=== PATIENT | female | born 1995 | race Caucasian/White ===

== ENCOUNTER 2017-11-18 22:19 | Emergency (ER) | payer MEDICAID, SELFPAY ==
[2017-11-18 22:20] VITALS: BP 127/70; PULSE 82; RESP 16; TEMP 36; O2SAT 97; BMI 43.2
--- NOTE | 2017-11-18 23:25 | ED.DCSUM_ITS ---
- ER Visit Summary Date of Service: 11/18/17 Chief Complaint: Abdominal pain History of Present Illness: The patient is a 21 F mid abdominal gnawing pain for the past few days, however pain to right lower quadrant since this afternoon. Pain sharp in nature. Nausea without vomiting. Normal bowel movement 7:30 PM. No urinary symptoms. Last menstrual period 8 days ago. History of cholecystectomy 10 years ago. Denies fever, chills, sweats. Took ibuprofen with no relief. History of PCOS however no pelvic pain in the past. Physical Examination: General: Alert and oriented ?3, no acute distress HEENT: Normocephalic, atraumatic. Moist mucosa membranes Neck: supple, nontender. Cardiovascular: Regular rate and rhythm, no murmurs Respiratory: Normal breath sounds, symmetric, no distress Abdomen: Soft, mild tenderness right lower quadrant and suprapubic, nondistended , no guarding or rebound, negative Rovsing's. Extremities: Nontender, no edema, pulses intact ?4 Neuro: no focal neurological deficits. Test Results: WBC 11.2. Hemoglobin 14. Creatinine 1.04. Potassium 3.9. Lipase 84. Liver enzymes normal. HCG negative. UA negative. Contrast CT abdomen pelvis shows no acute process, no pericecal inflammation. Emergency Department Course and Treatment: Patient fluids Zofran. Declined any pain medications. Normal labs, urine hCG negative. CT scan abdomen pelvis negative, no inflammation around the appendix. Reevaluation nausea improved. Pain improved. Nontender. Monitor symptoms sinus symptoms discussed return. Prescription for Zofran as needed. Follow-up as an outpatient. Treatment Plan: [] Disposition: Discharge Impression: 1. Right lower quadrant abdominal pain 2. Nausea This note was generated with .[employer] dictation software. It may contain incorrect words, spelling, and punctuation that were not noted in review of the chart prior to signing ED Disposition - Plan for ED Patient: Disposition: Home or Assisted Living Chief Complaint: Abd Pain Diagnosis: Right lower quadrant abdominal pain, Nausea Instructions: ED Abdominal Pain Unkn Cause Prescriptions: Ondansetron [Zofran Odt] 4 mg PO Q8H PRN PRN #10 tablet PRN Reason: Nausea Referrals: Chivo Lozano MD [Primary Care Provider] - 2 Days
[2017-11-18 23:45] LABS: Bacteria 0 SEEN /hpf (None Seen); Mucous, Urine 0 SEEN /hpf (<or=2+); Red Blood Cells-Urine 0 SEEN /hpf (0-5); White Blood Cells 0 SEEN /hpf (0-5)
[2017-11-18] MEDS: Ondansetron 4 MG/2 ML Vial IV (23:47)
[2017-11-18] MEDS: 0.9% Normal Saline 1,000 ML 125 ML IV (23:47)
[2017-11-18 23:49] LABS: Color, Urine Straw (Yellow); Glucose, Dipstick Normal (Normal); Ketone-Dipstick Negative (Negative); Leukocyte Esterase-Dipstick Negative /ul (Negative); Nitrite-Dipstick Negative (Negative); Occult Blood-Urine Negative /ul (Negative); Protein-Dipstick Negative (Negative); Urine Bilirubin Dipstick Negative (Negative); Urine Clarity Clear (Clear); Urine Urobilinogen Normal (Normal); Urine pH 6.5 (5.0 - 8.0)
[2017-11-18 23:54] LABS: Absolute Lymphocyte Count 3.87 X10^3/ul (0.83-4.51); Absolute Neutrophil Count 6.3 X10^3/uL (2.0-7.7); Basophil# 0.02 X10^3/uL; Basophil% 0.2 % (0-1); Eosinophil# 0.48 X10^3/uL; Eosinophils% 4.3 % (0-5); Hematocrit 42.8 % (37-47); Lymphocyte # 3.87 X10^3/ul (4.0); Lymphocyte % 34.5 % (19-41); Mean Corp Hgb Conc 32.7 g/gl (32-36); Mean Corpuscular Hgb 27.6 pg (27.0-32.0); Mean Corpuscular Volume 84.4 fL (81-99); Mean Platelet Vol. 9.1 fl (6.2-12.0); Monocyte# 0.57 X10^3/uL; Monocyte% 5.1 % (0-10); Neutrophil # 6.27 X10^3/uL (2.7-7.7); Neutrophil % 55.8 % (47-70); POSITIVE COUNT NO; POSITIVE DIFFERENTIAL NO; POSITIVE MORPHOLOGY NO; Platelet Count 275 K/mm3 (150-450); RBC Distribution Width CV 13.9 % (11.6-14.6); RBC Distribution Width SD 42.8 fl (35.1-43.9); Red Blood Count 5.07 M/mm3 (4.2-5.4); White Blood Count 11.2 K/mm3 (4.4-11.0)
[2017-11-18 23:57] LABS: Squamous Epithelial Cells - UA 0-5 SEEN /hpf (5-10)
[2017-11-19] LABS: Internal QC Validated? YES +Cl - CLEAR BKGD; Pregnancy, Urine Negative Negative
[2017-11-19 00:05] LABS: AST(SGOT) 19 U/L (15-37); Alanine Aminotransfer ALT/SGPT 28 U/L (13-56); Albumin, Serum 3.9 g/dL (3.2-5.0); Alkaline Phosphatase 86 U/L (45-117); Anion Gap 4 (5-15); BUN 15 mg/dL (7-18); BUN/Creat Ratio 14.4 RATIO (10-20); Calcium,Total 9.7 mg/dL (8.5-10.1); Chloride 105 mmol/L (98-107); Creatinine, Serum 1.04 mg/dL (0.55-1.02); EST Glomerular Filtration Rate 69 mL/min (>60); Est Glom Filt Rate - Afr Amer 84 mL/min (>60); Globulin 4.1 g/dL (2.2-4.2); Glucose 91 mg/dL (74-106); Lipase 84 U/L (73-393); Potassium 3.9 mmol/L (3.5-5.1); Sodium Level 139 mmol/L (136-145)
[2017-11-19 02:25] VITALS: RESP 18; O2SAT 98
--- NOTE | 2017-11-19 23:23 | CT_ITS ---
STUDY: CT ABDOMEN AND PELVIS WITH CONTRAST REASON FOR EXAM: Female, 21 years old. Right lower quadrant pain x2 days, worse now. Elevated WBCs. History of polycystic ovarian syndrome, cholecystectomy RADIATION DOSAGE (If Supplied By Facility): CTDIvol = ( 22.07 ) mGy, DLP = ( 1357.07 ) mGycm TECHNIQUE: Transaxial 3.75 mm images were obtained from the dome of the diaphragm to the symphysis pubis with oral contrast. 100 ml of Isovue 300 contrast was administered. Sagittal and coronal images were reconstructed. There is obesity, the entirety of soft tissue is not imaged. Individualized dose optimization techniques were used for this CT. COMPARISON: None. FINDINGS: The visualized lung bases are unremarkable. The visualized portions of the heart are within normal limits. There is hepatomegaly with diffuse hepatic enlargement. There are surgical clips in the gallbladder fossa consistent with a prior cholecystectomy. Normal spleen. Normal pancreas. Normal bilateral adrenal glands. Normal right kidney. Normal left kidney. There is no obstructive uropathy, obstructive renal or ureteral calculi. Normal visualized stomach. Normal small intestine. Normal colon. The pericecal appendix is visualized and appears normal. Image [id number] series 2. There are scattered small bowel and ileocolic mesenteric lymph nodes. Normal abdominal aorta. Normal inferior vena cava. Normal retroperitoneum. Normal urinary bladder. Normal visualized uterus and adnexa. Normal abdominal wall. Normal osseous structures. CT/Abdomen/Pelvis WITH Contrast IMPRESSION: There is no abscess, collection, perforation or obstruction. Mesenteric lymph nodes possible mesenteric adenitis. Hepatomegaly. Electronically Signed: Celeste Bales MD at 1:47 EDT , Service support ,
== END 2017-11-19 02:26 | disposition home or self-care (01) ==
PROVIDERS: Emergency Provider Emergency Medicine; Family Provider Family Medicine; PCP Family Medicine
DX: R10.31 Right lower quadrant pain (principal); R11.0 Nausea; F32.9 Major depressive disorder, single episode, unspecified
CPT/HCPCS: 74177; 80053; 81001; 81025; 83690; 85025; 96361; 96374; 99284; J7030; Q9967; A4216; J2405

== ENCOUNTER 2021-06-04 03:34 | Emergency (ER) | payer MEDICAID, SELFPAY ==
[2021-06-04 03:35] VITALS: BP 156/86; PULSE 89; RESP 20; TEMP 36.8; O2SAT 97; BMI 70.9
--- NOTE | 2021-06-04 03:57 | CT_ITS ---
HISTORY: Mid abdominal pain, pelvic pain, diarrhea, elevated white blood cell count. EXAMINATION: CT Abdomen And Pelvis W/ Contrast Injection TECHNIQUE: Helically acquired images were obtained of the abdomen and pelvis following IV contrast. A radiation dose optimization technique was used for this scan. IV Contrast dosage and agent: 100mL Isovue-300 Oral contrast: None. COMPARISON: Contrast-enhanced CT abdomen and pelvis from 11/19/17 FINDINGS: LOWER CHEST: Grossly stable appearance of ovoid well-circumscribed and slightly decreased attenuation mass along the pleura and paravertebral space within medial right lower hemithorax, measuring 3.2 x 2 cm. Lesion is located at level of T10-11, intimately abutting right neural foramina. There is no appreciable vertebral foraminal expansion or osseous erosion. No acute basilar airspace disease. Stable mildly elevated right hemidiaphragm. LIVER: Worsening hepatic steatosis and hepatic enlargement, with liver measuring almost 25 cm craniocaudal length. No discrete liver mass. GALLBLADDER AND BILIARY TREE: Status post cholecystectomy. No significant biliary ductal dilation. KIDNEYS AND URETERS: Normal renal size. No concerning lesion. There is no perinephric inflammation or hydronephrosis. ADRENAL GLANDS: Non-enlarged. SPLEEN: Normal size without discrete mass. PANCREAS: No discrete mass or peripancreatic inflammation. BOWEL: Normal appendix medial to cecum within right lower quadrant. No abnormal stomach or bowel distension. No focal inflammatory change observed. LYMPH NODES: Multiple small mesenteric lymph nodes present. No bulky adenopathy. PERITONEUM: No free air or significant free fluid. No other fluid collection. VESSELS: Major vessels are normal caliber and unremarkable. URINARY BLADDER: Unremarkable. REPRODUCTIVE ORGANS: No pelvic mass or large adnexal cyst. ABDOMINAL WALL: No acute findings or significant hernia defect. BONES: Intact with no suspicious osseous lesion. CT/Abdomen/Pelvis W IV Cont ONLY IMPRESSION: 1. Stable ovoid pleural-based right paravertebral mass at level of T10-11, intimately abutting right neural foramina. Differential includes nerve sheath tumor (schwannoma), neurofibroma, pleural-based fibrous type lesion. Suggest follow-up nonemergent thoracic spine MRI with and without contrast. 2. Worsening hepatomegaly and hepatic steatosis. 3. Multiple small mesenteric lymph nodes, possible mild viral adenitis. Individualized dose optimization techniques were used for this CT. at 0459 Reported and signed by: Toney Butcher MD Electronically Signed: Toney Butcher MD at 4:57 EST ,
--- NOTE | 2021-06-04 03:57 | RAD_ITS ---
HISTORY: cough EXAMINATION/TECHNIQUE: XR Chest 1 View AP view COMPARISON: Two-view chest x-ray from 08/16/14 FINDINGS: LINES/DEVICES: None. LUNGS: No focal airspace consolidation. No pulmonary edema. No pleural effusion. No pneumothorax. MEDIASTINUM AND CARDIOVASCULAR STRUCTURES: Cardiac silhouette not enlarged. Central airways and mediastinal contour are unremarkable. BONES AND SOFT TISSUES: No acute findings. RAD/Chest 1 View (Portable) IMPRESSION: No radiographic evidence of acute cardiopulmonary disease. at 0439 Reported and signed by: Toney Butcher MD Electronically Signed: Toney Butcher MD at 4:38 EST ,
--- NOTE | 2021-06-04 04:03 | EX.ED.DYSGE1 ---
HPI History of Present Illness Chief Complaint: Abd Pain Informant: patient Narrative Narrative: Patient presents with abdominal pain. Each time and the more I asked the patient the longer her symptoms seem to have gone on for. First she stated tonight. But then I found out she has been having abdominal cramping for the least the last 4 nights. It seems to come and go. Is not always there during the day. Nothing makes it better or worse. It seems to be all upper abdomen. But she is also had some abdominal symptoms going on for much longer may be a week or 2 more she is also had recently some watery diarrhea. She has had nausea but no vomiting. She has not been eating or drinking much the last few days. She had subjective fevers but none measured. But she is also had runny nose nonproductive cough without dyspnea and myalgias. She states she could not have Covid because she had at 6 weeks ago. However, she also has not yet been vaccinated because she gets too anxious. She states that the coming and going of the abdominal pain is similar to when she had her gallbladder out many years ago. No other surgeries. She has no urinary symptoms. No trauma. No blood in the stool. [facility] Medical History Anxiety Anxiety Home Medications dicyclomine 20 mg PO TID PRN #14 tab 06/04/21 [Rx Last Taken Unknown] inositol-D chiro inositol [Ovasitol] ea PO 06/04/21 [History Last Taken Unknown] ondansetron 4 mg PO Q8H PRN #10 tab 06/04/21 [Rx Last Taken Unknown] Allergy/AdvReac Type Severity Reaction Status Date / Time amoxicillin trihydrate Allergy Rash Verified 11/18/17 22:23 [From Augmentin] avocado Allergy Food Verified 11/18/17 22:23 Allergy banana Allergy Food Verified 11/18/17 22:23 Allergy potassium clavulanate Allergy Rash Verified 11/18/17 22:23 [From Augmentin] latex AdvReac Rash Verified 11/18/17 22:23 milk AdvReac Nausea/Vom/ Verified 11/18/17 22:23 Diarrhea Surgical History History of cholecystectomy Social History Smoking Status: Never smoker ROS ROS ED Constitutional Constitutional ED: Reports fever(s) and subjective Eyes Eyes: Denies blurry vision ENT ENT ED: Reports rhinorrhea; Denies sore throat Cardiovascular Cardiovascular: Denies chest pain or palpitations Respiratory/Chest Respiratory/Chest: Reports cough; Denies dyspnea or sputum Gastrointestinal Gastrointestinal: Reports abdominal pain, diarrhea and nausea; Denies constipation, melena or vomiting Genitourinary Genitourinary ED: Denies dysuria, hematuria or urinary frequency Musculoskeletal Musculoskeletal: Reports myalgias Integumentary Denies rash Neurologic Neurologic: Denies headache(s) Psychiatric Psychiatric: Reports anxiety Endocrine Endocrinology: Denies polydipsia or polyuria Allergic/Immunologic Allergic/Immunologic ED: Denies urticaria EXAM Physical Exam Const Vital Signs: 06/04/21 03:35 Temperature 98.2 F Temperature Source Oral Pulse Rate 89 Respiratory Rate 20 H Blood Pressure 156/86 H Blood Pressure Mean 109 Pulse Ox 97 Oxygen Delivery Method Room Air Positive well nourished, well developed and obese General Appearance ED: well developed and NAD; Negative for cyanotic or diaphoretic Nutritional Appearance: obese HEENT Reports moist mucous membranes Negative for trauma Eyes General Eye ED: Negative for pale conjunctiva or scleral icterus Neck no JVD Chest Wall inspection of chest normal Resp normal respiratory effort and clear to auscultation bilaterally Resp Narrative: Breath sounds are somewhat distant but I hear no wheezing rhonchi. Changes might be due to body habitus. Effort and Inspection: Negative for pain with movement Auscultation: Negative for rales, rhonchi or wheezes Cardio regular rate, regular rhythm and no murmurs GI normal to inspection, nondistended, normoactive bowel sounds and non-tender GI Narrative: Abdomen has normal bowel sounds. Soft. I do not get any notable tenderness. However, her exam is difficult. Palpation: soft Back/Spine no CVA tenderness Extremity General Extremety ED: Negative for tenderness Neuro oriented x3 Sensorium / Orientation: alert Psych Mood & Affect: anxious Skin no rashes or lesions noted and no wounds MDM MDM MDM Narrative Medical decision making narrative: Patient does have a slight elevation of white count. Electrolytes show no marked abnormalities. Minimal elevation in creatinine. Glucose was 137. LFTs show minimal changes. Lipase is not elevated. is negative. Urine is also clean. Because of her white count and difficult exam with abdominal pain we did do CT scan of the abdomen. This showed an area near T10-T11. This has been seen before. I talked to the patient about this and explained that this does need follow-up. She had some slight increase in the size of her liver. There were also some lymph nodes more consistent with a little viral adenitis that does explain her symptoms. Patient is comfortable going home. We will write for some Bentyl and Zofran. We discussed reasons to return. Lab Data Attestation: I reviewed the patient's lab results. Labs: Laboratory Results - last 24 hr 06/04/21 06/04/21 06/04/21 03:56 03:56 03:56 WBC 16.8 H RBC 5.41 H Hgb 13.3 Hct 42.5 MCV 78.6 L MCH 24.6 L MCHC 31.3 L RDW Std Deviation 49.3 H RDW Coeff of Karla 17.9 H Plt Count 359 MPV 9.0 Immature Gran % (Auto) DIMPLING MACHINE OPERATOR Neut % (Auto) DIMPLING MACHINE OPERATOR Lymph % (Auto) DIMPLING MACHINE OPERATOR [place] % (Auto) DIMPLING MACHINE OPERATOR Eos % (Auto) DIMPLING MACHINE OPERATOR Baso % (Auto) DIMPLING MACHINE OPERATOR Absolute Neuts (auto) 10.2 H Absolute Lymphs (auto) 3.35 Total Counted 100 Neutrophils % (Manual) 61 Lymphocytes % (Manual) 20 Monocytes % (Manual) 9 Eosinophils % (Manual) 10 H Nucleated RBC % DIMPLING MACHINE OPERATOR Diff Path Review May foll Platelet Estimate ADEQUATE RBC Morphology NORM C+C Sodium 136 Potassium 3.6 Chloride 103 Carbon Dioxide 25.0 Anion Gap 8 BUN 14 Creatinine 1.06 H Estim Creat Clear Calc 71.74 Est GFR (MDRD) Af Amer 80 Est GFR (MDRD) Non-Af 66 BUN/Creatinine Ratio 13.2 Glucose 137 H Calcium 9.3 Total Bilirubin 0.20 AST 35 ALT 64 H Alkaline Phosphatase 94 Total Protein 8.2 Albumin 3.4 Globulin 4.8 H Albumin/Globulin Ratio 0.7 L Lipase 50 L Serum , Qual NEGATIVE Urine Color Urine Clarity Urine pH Ur Specific [place] Urine Protein Urine Glucose (UA) Urine Ketones Urine Occult Blood Urine Nitrite Urine Bilirubin Urine Urobilinogen Ur Leukocyte Esterase Urine RBC Urine WBC Ur Squamous Epith Cells Urine Bacteria Urine Mucus 06/04/21 05:27 WBC RBC Hgb Hct MCV MCH MCHC RDW Std Deviation RDW Coeff of Karla Plt Count MPV Immature Gran % (Auto) Neut % (Auto) Lymph % (Auto) [place] % (Auto) Eos % (Auto) Baso % (Auto) Absolute Neuts (auto) Absolute Lymphs (auto) Total Counted Neutrophils % (Manual) Lymphocytes % (Manual) Monocytes % (Manual) Eosinophils % (Manual) Nucleated RBC % Diff Path Review Platelet Estimate RBC Morphology Sodium Potassium Chloride Carbon Dioxide Anion Gap BUN Creatinine Estim Creat Clear Calc Est GFR (MDRD) Af Amer Est GFR (MDRD) Non-Af BUN/Creatinine Ratio Glucose Calcium Total Bilirubin AST ALT Alkaline Phosphatase Total Protein Albumin Globulin Albumin/Globulin Ratio Lipase Serum , Qual Urine Color Yellow Urine Clarity Clear Urine pH 5.0 Ur Specific [place] 1.010 Urine Protein Negative Urine Glucose (UA) Normal Urine Ketones Negative Urine Occult Blood 250 H Urine Nitrite Negative Urine Bilirubin Negative Urine Urobilinogen Normal Ur Leukocyte Esterase Negative Urine RBC 0-5 SEEN Urine WBC 0 SEEN Ur Squamous Epith Cells 0-5 SEEN Urine Bacteria 1+ Urine Mucus 0 SEEN Radiography Diagnostic Testing: Clinical Impression(s) from Imaging Studies Abdomen/Pelvis CT 06/04/21 03:57 IMPRESSION: 1. Stable ovoid pleural-based right paravertebral mass at level of T10-11, intimately abutting right neural foramina. Differential includes nerve sheath tumor (schwannoma), neurofibroma, pleural-based fibrous type lesion. Suggest follow-up nonemergent thoracic spine MRI with and without contrast. 2. Worsening hepatomegaly and hepatic steatosis. 3. Multiple small mesenteric lymph nodes, possible mild viral adenitis. Individualized dose optimization techniques were used for this CT. at 7255 Reported and signed by: Toney Butcher MD Electronically Signed: Toney Butcher MD at 4:57 EST , Chest X-Ray 06/04/21 03:57 IMPRESSION: No radiographic evidence of acute cardiopulmonary disease. at 6289 Reported and signed by: Toney Butcher MD Electronically Signed: Toney Butcher MD at 4:38 EST , Discharge Plan Triage Chief Complaint: Abd Pain ED Provider: Irvin Diaz Dx/Rx/DC Orders Clinical Impression: Abdominal pain, Acute viral syndrome Instructions: ED Abdominal Pain Unkn Cause Fem Prescriptions: New ondansetron 4 mg tablet,disintegrating 4 mg PO Q8H PRN (Reason: nausea and vomiting) Qty: 10 RF: 0 dicyclomine 20 mg tablet 20 mg PO TID PRN (Reason: cramping) Qty: 14 RF: 0 No Action Ovasitol 2,000-50 mg Powder In Packet PO RF: 0 Primary Care Provider: Chivo Lozano Referrals: Chivo Lozano MD [Primary Care Provider] - 3-5 Days if not improving Disposition Disposition: Home, Self Care
[2021-06-04 04:06] LABS: Hematocrit 42.5 % (37-47); Hemoglobin 13.3 g/dL (12.0-15.0); Mean Corp Hgb Conc 31.3 g/dL (32-36); Mean Corpuscular Hgb 24.6 pg (27.0-32.0); Mean Corpuscular Volume 78.6 fL (81-99); POSITIVE DIFFERENTIAL YES; Platelet Count 359 K/mm3 (150-450); RBC Distribution Width CV 17.9 % (11.6-14.6); RBC Distribution Width SD 49.3 fl (35.1-43.9); Red Blood Count 5.41 M/mm3 (4.2-5.4); White Blood Count 16.8 K/mm3 (4.4-11.0)
[2021-06-04 04:14] LABS: Internal QC Validated? YES +Cl - CLEAR BKGD; Pregnancy, Serum, hCG Quali. NEGATIVE Negative
[2021-06-04 04:19] LABS: ALB/GLOB Ratio 0.7 RATIO (0.9-2.4); AST(SGOT) 35 U/L (15-37); Alanine Aminotransfer ALT/SGPT 64 U/L (13-56); Albumin, Serum 3.4 g/dL (3.2-5.0); Alkaline Phosphatase 94 U/L (45-117); Anion Gap 8 (5-15); BUN 14 mg/dL (7-18); BUN/Creat Ratio 13.2 RATIO (10-20); Calcium,Total 9.3 mg/dL (8.5-10.1); Chloride 103 mmol/L (98-107); Creatinine, Serum 1.06 mg/dL (0.55-1.02); EST Glomerular Filtration Rate 66 mL/min (>60); Est Glom Filt Rate - Afr Amer 80 mL/min (>60); Estimated Creatinine Clearance 71.74 ml/min; Globulin 4.8 g/dL (2.2-4.2); Glucose 137 mg/dL (74-106); Lipase 50 U/L (73-393); Potassium 3.6 mmol/L (3.5-5.1); Protein, Total 8.2 g/dL (6.4-8.2); Sodium Level 136 mmol/L (136-145)
[2021-06-04 04:23] LABS: Scan Smear per Review Criteria MANUAL DIFF
[2021-06-04 04:24] LABS: Differential Indicated MANUAL DIFF
[2021-06-04 04:29] LABS: Absolute Neutrophil Count 10.2 X10^3/uL (2.0-7.7)
[2021-06-04 04:30] LABS: Absolute Lymphocyte Count 3.35 X10^3/uL (0.83-4.51); Eosinophil 10 % (0-5); Lymphocyte 20 % (19-41); Monocyte 9 % (0-10); Neutrophil-Segmented 61 % (47-70); Platelet Estimate ADEQUATE (ADEQ); Red Cell Morphology NORM C+C NORMAL (NORM C&C); Total Cells Counted 100 (MANUAL DIFF)
[2021-06-04 05:31] LABS: Mucous, Urine 0 SEEN /hpf (<or=2+); White Blood Cells 0 SEEN /hpf (0-5)
[2021-06-04 05:33] LABS: Color, Urine Yellow (Yellow); Glucose, Dipstick Normal (Normal); Ketone-Dipstick Negative (Negative); Leukocyte Esterase-Dipstick Negative /ul (Negative); Nitrite-Dipstick Negative (Negative); Occult Blood-Urine 250 /ul (Negative); Protein-Dipstick Negative (Negative); Urine Bilirubin Dipstick Negative (Negative); Urine Clarity Clear (Clear); Urine Urobilinogen Normal (Normal)
[2021-06-04 05:44] LABS: Bacteria 1+ /hpf (None Seen); Red Blood Cells-Urine 0-5 SEEN /hpf (0-5); Squamous Epithelial Cells - UA 0-5 SEEN /hpf (5-10)
[2021-06-04 06:02] VITALS: BP 148/82; PULSE 87; RESP 18; O2SAT 97
[2021-06-05 14:05] LABS: Pathologist Review Reviewed
== END 2021-06-04 06:11 | disposition home or self-care (01) ==
PROVIDERS: Emergency Provider Emergency Medicine; PCP Family Medicine; Visit Provider Emergency Medicine
DX: R10.9 Unspecified abdominal pain (principal); B34.9 Viral infection, unspecified; E66.9 Obesity, unspecified; Z86.16 Personal history of COVID-19
CPT/HCPCS: 71045; 74177; 80053; 81001; 83690; 84703; 85025; 87426; 99284; Q9967; A4216